=== PATIENT | female | born 1930 | race African-American/Black ===

== ENCOUNTER 2018-09-21 13:14 | Inpatient (IN) ==
[2018-09-21] MEDS ORDERED: LACTULOSE 20 GM/30 ML UDCUP PO PRN (17:28)
[2018-09-21 19:13] LABS: Basophils % 0.4 % (0.0-0.8); Hematocrit 42.3 VOL% (35.7-47.0); Hemoglobin 13.6 GM/DL (12.0-16.0); Immature Granulocytes % 0.4 %; Immature Granulocytes Absolute 0.03 #; Lymphocytes # 2.5 10*3/uL (1.4-4.0); Lymphocytes % 33.3 % (21.3-54.2); Mean Corpuscular HGB Conc 32.2 GM/DL (32-36); Mean Corpuscular Volume 85.3 FL (87-102); Mean Platelet Volume 10.6 FL (9.6-12.0); Monocytes % 10.2 % (1.7-12.7); Neutrophils % 55.7 % (38.7-73.9); Platelet Count 312 T/CUMM (130-400); Red Blood Count 4.96 MC/CUMM (3.8-5.5); Red Cell Distribution Width 14.3 % (9.3-17.3); White Blood Count 7.5 T/CUMM (4-12)
[2018-09-21 19:33] LABS: Albumin 3.6 G/DL (3.4-5.0); Bilirubin,Total 0.4 MG/DL (0.2-1.0); Calcium 9.9 MG/DL (8.5-10.1); Osmolality,Calculated 274.8 MOS/KG (273-304); Total Protein 8.4 G/DL (6.4-8.3)
[2018-09-21 19:35] LABS: Troponin I 0.059 NG/ML (0.00-0.045)
[2018-09-21 19:39] LABS: Risk Ratio 2.18; Thyroid Stimulating Hormone 1.51 uIU/ml (0.358-3.74); VLDL CHOLESTEROL 13.6 MG/DL
[2018-09-21] MEDS ORDERED: amLODIPine 10 MG TABLET PO SCH (21:00)
[2018-09-21] MEDS: ENOXAPARIN 40 MG/0.4 ML SYRINGE SUBCUT SCH (21:51)
[2018-09-21] MEDS: DONEPEZIL 10 MG TABLET PO SCH (21:51)
[2018-09-21] MEDS: ATORVASTATIN 20 MG TABLET PO SCH (21:52)
[2018-09-21] MEDS: hydrALAZINE 10 MG TABLET PO SCH (21:58)
[2018-09-22 00:33] LABS: Apearance,Urine CLEAR (Clear); Bacteria,Urine Occasional /HPF (Few); Bilirubin,Urine Negative (Negative); Blood, Urine Small mg/dL (Negative); Glucose,Urine (UA) Negative (Negative); Ketones,Urine Negative (Negative); Nitrite,Urine Negative (Negative); Protein,Urine Negative; RBC,Urine <1 /HPF (0-4); Squamous Epithelial Cell,Urine Occasional /HPF (0-10); Urine Color Straw (Yellow); Urine Specific Gravity 1.006 (1.001-1.035); Urine Urobilinogen < 2.0 EU/DL (0.2-1.0); WBC,Urine 2 /HPF (0-6)
[2018-09-22] MEDS: ONDANSETRON 4 MG/2 ML VIAL IV PRN (04:36)
[2018-09-22 05:18] LABS: Basophils % 0.5 % (0.0-0.8); Hematocrit 41.3 VOL% (35.7-47.0); Hemoglobin 13.1 GM/DL (12.0-16.0); Immature Granulocytes % 0.6 %; Immature Granulocytes Absolute 0.05 #; Lymphocytes # 3.4 10*3/uL (1.4-4.0); Lymphocytes % 42.9 % (21.3-54.2); Mean Corpuscular HGB Conc 31.7 GM/DL (32-36); Mean Corpuscular Volume 84.8 FL (87-102); Mean Platelet Volume 10.4 FL (9.6-12.0); Monocytes % 8.1 % (1.7-12.7); Neutrophils % 47.9 % (38.7-73.9); Platelet Count 300 T/CUMM (130-400); Red Blood Count 4.87 MC/CUMM (3.8-5.5); Red Cell Distribution Width 14.5 % (9.3-17.3)
[2018-09-22 05:42] LABS: Calcium 9.7 MG/DL (8.5-10.1); Osmolality,Calculated 272.8 MOS/KG (273-304)
[2018-09-22] MEDS: hydrALAZINE 10 MG TABLET PO SCH ×3 (08:26→21:12)
[2018-09-22] MEDS: PANTOPRAZOLE 40 MG TABLET PO SCH (08:26)
[2018-09-22] MEDS: ANASTROZOLE 1 MG TABLET PO SCH (08:26)
[2018-09-22] MEDS: MAGNESIUM OXIDE 400 MG TABLET PO SCH (08:26)
[2018-09-22] MEDS ORDERED: POTASSIUM CHLORIDE RIDER 10 MEQ in PREMIX 1 EACH IV PRN (14:29)
[2018-09-22] MEDS ORDERED: MAGNESIUM SULF RIDER 2 GM in PREMIX 1 EACH IV PRN (14:29)
[2018-09-22] MEDS ORDERED: diphenhydrAMINE CAP 25 MG CAPSULE PO ONE (15:00)
[2018-09-22] MEDS ORDERED: DIAZEPAM 5 MG TABLET PO ONE (15:00)
[2018-09-22] MEDS: ASPIRIN EC 325 MG TABLET PO SCH (15:04)
[2018-09-22] MEDS: NEBIVOLOL 5 MG TABLET PO SCH (15:05)
[2018-09-22] MEDS: hydrALAZINE 20 MG/1 ML VIAL IV PRN (20:59)
[2018-09-22] MEDS: DONEPEZIL 10 MG TABLET PO SCH (21:00)
[2018-09-22] MEDS: ENOXAPARIN 40 MG/0.4 ML SYRINGE SUBCUT SCH (21:00)
[2018-09-22] MEDS: ATORVASTATIN 20 MG TABLET PO SCH (21:00)
[2018-09-22] MEDS: amLODIPine 10 MG TABLET PO SCH (21:00)
[2018-09-23] MEDS: SODIUM CHLORIDE 0.9% 1,000 ML IV SCH ×2 (02:18→11:35)
[2018-09-23 05:35] LABS: Basophils % 0.5 % (0.0-0.8); Hematocrit 40.6 VOL% (35.7-47.0); Hemoglobin 12.7 GM/DL (12.0-16.0); Immature Granulocytes % 0.5 %; Immature Granulocytes Absolute 0.03 #; Lymphocytes # 2.3 10*3/uL (1.4-4.0); Lymphocytes % 37.3 % (21.3-54.2); Mean Corpuscular HGB Conc 31.3 GM/DL (32-36); Mean Corpuscular Volume 85.7 FL (87-102); Mean Platelet Volume 10.5 FL (9.6-12.0); Monocytes % 11.6 % (1.7-12.7); Neutrophils % 50.1 % (38.7-73.9); Platelet Count 289 T/CUMM (130-400); Red Blood Count 4.74 MC/CUMM (3.8-5.5); Red Cell Distribution Width 14.5 % (9.3-17.3); White Blood Count 6.3 T/CUMM (4-12)
[2018-09-23 05:51] LABS: Osmolality,Calculated 278.4 MOS/KG (273-304)
[2018-09-23] MEDS ORDERED: diphenhydrAMINE CAP 25 MG CAPSULE PO ONE (06:00)
[2018-09-23] MEDS ORDERED: DIAZEPAM 5 MG TABLET PO ONE (06:00)
[2018-09-23] MEDS: ANASTROZOLE 1 MG TABLET PO SCH (09:41)
[2018-09-23] MEDS: NEBIVOLOL 5 MG TABLET PO SCH (09:41)
[2018-09-23] MEDS: hydrALAZINE 10 MG TABLET PO SCH ×3 (09:41→20:49)
[2018-09-23] MEDS: MAGNESIUM OXIDE 400 MG TABLET PO SCH (09:41)
[2018-09-23] MEDS: ASPIRIN EC 325 MG TABLET PO SCH (09:41)
[2018-09-23] MEDS: PANTOPRAZOLE 40 MG TABLET PO SCH (09:41)
[2018-09-23] MEDS: ACETAMINOPHEN 325 MG TABLET PO PRN (13:41)
[2018-09-23] MEDS: amLODIPine 10 MG TABLET PO SCH (20:48)
[2018-09-23] MEDS: DONEPEZIL 10 MG TABLET PO SCH (20:49)
[2018-09-23] MEDS: ENOXAPARIN 40 MG/0.4 ML SYRINGE SUBCUT SCH (20:49)
[2018-09-23] MEDS: ATORVASTATIN 20 MG TABLET PO SCH (20:52)
[2018-09-24] MEDS: SODIUM CHLORIDE 0.9% 1,000 ML IV SCH ×3 (00:29→09:35)
[2018-09-24] MEDS: ONDANSETRON 4 MG/2 ML VIAL IV PRN ×2 (02:22→22:46)
[2018-09-24] MEDS ORDERED: DIAZEPAM 5 MG TABLET PO ONE (08:00)
[2018-09-24] MEDS ORDERED: diphenhydrAMINE CAP 25 MG CAPSULE PO ONE (08:00)
[2018-09-24] MEDS: hydrALAZINE 10 MG TABLET PO SCH ×3 (08:23→20:52)
[2018-09-24] MEDS: NEBIVOLOL 5 MG TABLET PO SCH (08:23)
[2018-09-24] MEDS: PANTOPRAZOLE 40 MG TABLET PO SCH (08:23)
[2018-09-24] MEDS: MAGNESIUM OXIDE 400 MG TABLET PO SCH (08:23)
[2018-09-24] MEDS: ANASTROZOLE 1 MG TABLET PO SCH (08:24)
[2018-09-24] MEDS: ASPIRIN EC 325 MG TABLET PO SCH (08:24)
[2018-09-24 08:46] LABS: Basophils % 0.6 % (0.0-0.8); Hematocrit 38.4 VOL% (35.7-47.0); Hemoglobin 12.7 GM/DL (12.0-16.0); Immature Granulocytes % 0.4 %; Immature Granulocytes Absolute 0.03 #; Lymphocytes # 2.7 10*3/uL (1.4-4.0); Lymphocytes % 39.6 % (21.3-54.2); Mean Corpuscular HGB Conc 33.1 GM/DL (32-36); Mean Corpuscular Volume 84.4 FL (87-102); Mean Platelet Volume 10.3 FL (9.6-12.0); Monocytes % 8.6 % (1.7-12.7); Neutrophils % 50.8 % (38.7-73.9); Platelet Count 284 T/CUMM (130-400); Red Blood Count 4.55 MC/CUMM (3.8-5.5); Red Cell Distribution Width 14.6 % (9.3-17.3); White Blood Count 6.7 T/CUMM (4-12)
[2018-09-24 09:19] LABS: Calcium 8.7 MG/DL (8.5-10.1); Osmolality,Calculated 275.5 MOS/KG (273-304)
[2018-09-24] MEDS ORDERED: HEPARIN/NACL 0.9% 2 UNITS/ML 1,000 ML IV ONE (10:17)
[2018-09-24] MEDS ORDERED: LIDOCAINE 1% 20 ML VIAL ONE (10:17)
[2018-09-24] MEDS ORDERED: SODIUM BICARBONATE 2.4 MEQ/5 ML VIAL ONE (10:17)
[2018-09-24] MEDS ORDERED: MIDAZOLAM 2 MG/2 ML VIAL ONE (10:34)
[2018-09-24] MEDS ORDERED: fentaNYL 100 MCG/2 ML VIAL ONE (10:36)
[2018-09-24] MEDS ORDERED: MORPHINE 4 MG/1 ML VIAL IV PRN (11:36)
[2018-09-24] MEDS: hydrALAZINE 20 MG/1 ML VIAL IV PRN (12:04)
[2018-09-24] MEDS: ACETAMINOPHEN 325 MG TABLET PO PRN (19:45)
[2018-09-24] MEDS: ATORVASTATIN 20 MG TABLET PO SCH (20:52)
[2018-09-24] MEDS: DONEPEZIL 10 MG TABLET PO SCH (20:52)
[2018-09-24] MEDS: amLODIPine 10 MG TABLET PO SCH (20:52)
[2018-09-24] MEDS: ENOXAPARIN 40 MG/0.4 ML SYRINGE SUBCUT SCH (20:54)
[2018-09-25 05:35] LABS: Basophils % 0.4 % (0.0-0.8); Hematocrit 36.7 VOL% (35.7-47.0); Hemoglobin 11.9 GM/DL (12.0-16.0); Immature Granulocytes % 0.3 %; Immature Granulocytes Absolute 0.02 #; Lymphocytes # 3.1 10*3/uL (1.4-4.0); Lymphocytes % 44.6 % (21.3-54.2); Mean Corpuscular HGB Conc 32.4 GM/DL (32-36); Mean Corpuscular Volume 85.2 FL (87-102); Mean Platelet Volume 10.8 FL (9.6-12.0); Monocytes % 10.2 % (1.7-12.7); Neutrophils % 44.5 % (38.7-73.9); Platelet Count 257 T/CUMM (130-400); Red Blood Count 4.31 MC/CUMM (3.8-5.5); Red Cell Distribution Width 14.7 % (9.3-17.3); White Blood Count 6.9 T/CUMM (4-12)
[2018-09-25 06:10] LABS: Calcium 8.5 MG/DL (8.5-10.1); Osmolality,Calculated 279.3 MOS/KG (273-304)
[2018-09-25 07:42] VITALS: BP 169/70
[2018-09-25] MEDS: PANTOPRAZOLE 40 MG TABLET PO SCH (08:41)
[2018-09-25] MEDS: ASPIRIN EC 325 MG TABLET PO SCH (08:41)
[2018-09-25] MEDS: hydrALAZINE 10 MG TABLET PO SCH (08:41)
[2018-09-25] MEDS: NEBIVOLOL 5 MG TABLET PO SCH (08:41)
[2018-09-25] MEDS: MAGNESIUM OXIDE 400 MG TABLET PO SCH (08:42)
[2018-09-25] MEDS: ANASTROZOLE 1 MG TABLET PO SCH (08:49)
[2018-09-25] MEDS ORDERED: hydrALAZINE 25 MG TABLET PO SCH (21:00)
== END 2018-09-25 11:30 | disposition home or self-care (01) | DRG 287 ==
LOC: N.TELEN → SUATTDRO 16:21
PROVIDERS: ADMIT Internal Medicine; ATTEND Family Medicine
PROC: CLCCHCL (ICD-10-PCS; 2018-09-24 09:45)